=== PATIENT | female | born 1950 | race Caucasian/White ===

== ENCOUNTER → 2019-01-19 | Outpatient (CLI) | payer MEDICARE ==
[~2019-01-19] MED LIST: NALTREXONE PO; PREMC VG; THYR81.25 PO
== END | disposition home or self-care (01) ==
LOC: SHCH 15:12
PROVIDERS: ATTEND Internal Medicine Cardiovascular Disease
DX: I07.1 Rheumatic tricuspid insufficiency (principal); E03.9 Hypothyroidism, unspecified
CPT/HCPCS: 93306

== ENCOUNTER → 2019-01-22 | Outpatient (CLI) | payer MEDICARE ==
--- NOTE | 2019-01-22 21:31 | NUR ---
CURRENT MEDICATIONS LIST: NATURE THROID, T3 ONLY MED, VENLAFAXINE, LORAZEPAM, DHEA, BIOIDENTICAL HORMONE CREAMS, LDN (LOW DOSE NALTREXONE), PROGESTERONE, MAGNESIUM, POTASSIUM, SELENIUM, IODINE. Addendum: 01/22/19 at 2134 by MELITON MONK RTSLT Amended: Links added.
== END | disposition home or self-care (01) ==
LOC: SLP 20:25
PROVIDERS: ATTEND Internal Medicine Cardiovascular Disease
DX: G47.33 Obstructive sleep apnea (adult) (pediatric) (principal)
CPT/HCPCS: 95810

== ENCOUNTER → 2019-02-05 | Outpatient (CLI) | payer MEDICARE | END | disposition home or self-care (01) | LOC: SLP 14:26 | PROVIDERS: ATTEND Internal Medicine Cardiovascular Disease | DX: G47.33 Obstructive sleep apnea (adult) (pediatric) (principal); R09.02 Hypoxemia | CPT/HCPCS: 95811 ==

== ENCOUNTER 2023-09-01 06:19 | Day surgery (SDC) | payer MEDICARE ==
[2023-09-01] VITALS (11 sets, daily range): BP systolic 104–132; BP diastolic 58–87; PULSE 54–65; RESP 13–18
[~2023-09-01] VITALS: Ht 165.1 cm; Wt 55.3 kg
[~2023-09-01 06:19] MED LIST changes: +BORON PO; +FAMO40TA7 PO; +LORA0.5T83 PO; +MAGNESIUM PO; -NALTREXONE PO; +OMEGA 3 PO; +POTA99CA PO; -PREMC VG; +PROBIOTIC PO; +PROGESTERONE PO; +SELE200T27 PO; +VENL-191 PO; +VITA1CAP85 PO; +VITAMIN B1 PO; +VITAMIN D3 PO; +[UNRECOGNIZED DRUG - CODE] PO; +[UNRECOGNIZED DRUG - CODE] PO
[2023-09-01] MEDS ORDERED: LIDOCAINE PF 100MG/5ML (2%) SYRINGE 5ML ONE (08:21)
[2023-09-01] MEDS ORDERED: PROPOFOL 10 MG/ML 20ML VIAL IV ONE (08:21)
[2023-09-01] MEDS ORDERED: 0.9%NACL 1000ML 1,000 ML IV ONE (09:02)
== END 2023-09-01 09:55 | disposition home or self-care (01) ==
LOC: DAH 06:19 → ENDO 06:19
PROVIDERS: ATTEND Surgery
DX: K21.00 Gastro-esophageal reflux disease with esophagitis, without bleeding (principal); K22.70 Barrett's esophagus without dysplasia; K29.50 Unspecified chronic gastritis without bleeding; K44.9 Diaphragmatic hernia without obstruction or gangrene; K22.89 Other specified disease of esophagus; G47.30 Sleep apnea, unspecified; E03.9 Hypothyroidism, unspecified; Z80.0 Family history of malignant neoplasm of digestive organs; Z82.49 Family history of ischemic heart disease and other diseases of the circulatory system; Z82.3 Family history of stroke; Z83.3 Family history of diabetes mellitus; Z87.891 Personal history of nicotine dependence; Z72.89 Other problems related to lifestyle; Z90.710 Acquired absence of both cervix and uterus; Z98.890 Other specified postprocedural states; Z79.890 Hormone replacement therapy
CPT/HCPCS: 43239; J7030 ×2; J2001; J2704; A4620; A4215 ×2; A4223; A7002; A4222; A4221; A4663; A4606; J3490

== ENCOUNTER → 2023-10-19 | Outpatient (CLI) | payer MEDICARE | END | disposition home or self-care (01) | LOC: RAH 09:05 | PROVIDERS: ATTEND Surgery | DX: K44.9 Diaphragmatic hernia without obstruction or gangrene (principal); K21.9 Gastro-esophageal reflux disease without esophagitis | CPT/HCPCS: 74240 ==

== ENCOUNTER 2024-12-19 06:55 | Emergency (ER) | payer MEDICARE ==
[~2024-12-19] VITALS: Ht 165.1 cm; Wt 55.3 kg
[~2024-12-19 06:55] MED LIST changes: -VENL-191 PO; +VENL-83 PO
[2024-12-19 06:57] VITALS: BP 151/48; PULSE 74; RESP 18; TEMP 98
[2024-12-19] MEDS: HYDROcodone/APAP 5/325 1 TAB TABLET PO ONE (07:18)
[2024-12-19] MEDS: ketOROlac 15MG/ML VIAL (15MG/ML) IM ONE (07:18)
[2024-12-19] MEDS: diazePAM 2 MG TAB PO ONE (09:22)
--- NOTE | 2024-12-19 09:34 | ERN ---
ED Note History of Present Illness Stated Complaint: BACK PAIN Chief Complaint: Back Pain or Injury Time Seen by MD: 07:50 Dictation: 74-year-old female presents to the ED for evaluation of right lower back pain onset 3 days ago. Patient reports right hip pain and states the pain radiates down her right leg, patient denies any fall, trauma or any other associated symptoms at this time. As per patient she was moving some boxes a couple of days ago. Allergies: Coded Allergies: No Known Drug Allergies (Unverified Allergy, Unknown, 08/31/23) Uncoded Allergies: NKDA (Allergy, Unknown, 12/30/15) Home Meds Active Scripts Acetaminophen (Tylenol) 500 Mg Tab, 1 TAB PO BID PRN for pain or fever for 10 Days, #20 TAB 0 Refills Prov:SALBADOR ZENDEJAS MD 12/19/24 Reported Medications [Probiotic] No Conflict Check, 1 CAP PO DAILY 08/31/23 Psyllium Husk (with Sugar) (Konsyl Psyllium Fiber Powder) 3.4 Gram/12 Gram Po wder, 2 TSP PO BID, APPL 08/31/23 [[place] 3] No Conflict Check, 2100 MG PO DAILY 08/31/23 [Magnesium L-Theonate] No Conflict Check, 144 MG PO BID 08/31/23 Potassium Citrate (Potassium) 99 Mg Capsule, 99 MG PO DAILY, CAP 08/31/23 Vitamin B Complex (Vitamin B Complex) 1 Each Capsule, 1 EACH PO DAILY, CAP 08/31/23 [Vitamin B1] No Conflict Check, 200 MG PO DAILY 08/31/23 Selenomethionine (Selenium) 200 Mcg Tablet, 200 MCG PO QODAY, TAB 08/31/23 [[place]] No Conflict Check, 15 MG PO DAILY 08/31/23 Vitamin K2 (Mk-7) 90 Mcg Capsule, 90 MCG PO DAILY, CAP 08/31/23 [Vitamin D3] No Conflict Check, 12938 UNITS PO DAILY 08/31/23 Famotidine (Famotidine) 40 Mg Tablet, 40 MG PO HS, TAB 08/31/23 Lorazepam (Ativan) 0.5 Mg Tablet, 0.5 MG PO DAILY, TAB 08/31/23 Venlafaxine HCl (Venlafaxine HCl) 75 Mg Tablet, 75 MG PO DAILY, TAB 08/31/23 [Progesterone] No Conflict Check, 15 MG PO HS 08/31/23 Thyroid,Pork (Wp Thyroid) 81.25 Mg Tablet, 1 TAB PO DAILY, TAB 12/31/15 Past Medical History Past Medical History: Hypothyroid Surgical History: Hysterectomy, Tonsillectomy Review of System Dictation Constitutional: Negative for fever,chills, and weight loss Eyes: Negative for injury, pain,redness, and discharge ENT: Negative for injury,pain or swelling Cardiovascular: Negative for chest pain, palpitations, and edema Respiratory: Negative for shortness of breath, cough, and wheezing, Abdomen/GI: Negative for abdominal pain, nausea, vomiting, diarrhea, and constipation Back: Positive for back pain negative for injury : Negative for injury, bleeding and discharge MS/Extremity: Positive for right hip pain and right leg pain Skin: Negative for rash, and discoloration Neuro: Negative for headache, weakness, numbness, tingling, and seizure Psych: Negative for suicide ideation, homicidal ideation, and hallucinations Initial Vital Sign VS Vital Signs Date Time Temp Pulse Resp B/P (MAP) Pulse Ox O2 Delivery O2 Flow Rate FiO2 12/19/24 06:57 98.1 74 18 151/48 98 Room Air 0 Physical Exam Dictation General: awake, alert, NAD Head/Face: Normocephalic, atraumatic Eyes: PERRL, EOMI, vision at baseline ENT: oral cavity clear, TMs clear, no signs of infection Neck: Trachea midline, supple, no nuchal rigidity Cardiovascular: RRR, normal S1/S2, No MRGs, no JVD Respiratory: CTAB, no respiratory distress, No rales or wheezes Abdomen: Soft, non-tender, non-distended, normal bowel sounds, no guarding or rebound. Skin: Warm, dry, normal turgor, no rash MS/Extremity: Pulses equal, no cyanosis, neurovascular intact Neuro: COAx4, GCS 15, strength 5/5, CN 2-12 intact, normal cerebellar exam, normal gait, Psych: Normal behavior, mood, and affect normal ED Course ED Course Orders Procedure Category Date Status Time Ketorolac PHA 12/19/24 Complete Tromethamine 15mg/Ml 07:30 Hydrocodone/Apap PHA 12/19/24 Complete 5/325 ([place] 5/325mg) 07:30 Hip Unilat 2-3vw Right RAD 12/19/24 Resulted 08:02 Ct Abd/Pel Wo Con CT 12/19/24 Resulted Renal/Appy 08:56 Diazepam 2 Mg Tab PHA 12/19/24 Complete (Valium 2 Mg Tab) 09:00 Current Medications Medications (Trade) Dose Ordered Sig/Raghav Route PRN Reason Start Time Stop Time Status Last Admin Dose Admin Acetaminophen/ Hydrocodone Bitart (NORco 5/325MG) 1 tab ONCE ONCE PO 12/19/24 07:30 12/19/24 07:31 DC 12/19/24 07:18 Diazepam (VALium 2 mg Tab) 2 mg ONCE ONCE PO 12/19/24 09:00 12/19/24 09:01 DC 12/19/24 09:22 Ketorolac Tromethamine (toRADol) 15 mg ONCE ONCE IM 12/19/24 07:30 12/19/24 07:31 DC 12/19/24 07:18 Vital Signs Date Time Temp Pulse Resp B/P (MAP) Pulse Ox O2 Delivery O2 Flow Rate FiO2 12/19/24 06:57 98.1 74 18 151/48 98 Room Air 0 Medical Decision Making MDM MDM: Differential diagnosis: Hip pain, back pain, strain Rationale: Tests considered and ordered secondary to shared decision making include: Previous outside records reviewed: Old ER visits. Risk of complication and/or morbidity or mortality of patient management: None Medications-Per medication reconciliation Need for hospitalization: Patient does not meet criteria for hospitalization. Need for emergency major/minor surgery: No There are no social concerns with this patient. Prescription drug management Prescriptions will include symptomatic care Patient's prior external medical records from other ER visits were reviewed by me as indicated. Prior testing and results from previous visits were reviewed. Prior tests were taken into account with medical decision making and resource utilization, independent historian/historians were used to obtain complete medical history. I independently interpreted the test that were performed, results were reviewed by me and considered findings on radiology if ordered. Medical management and examination interpretation discussions were had by me with other qualified healthcare professionals as indicated for the patient's care. DX & DISP Disposition: Discharge Departure Impression: Primary Impression: Low back pain Condition: Stable Scripts Acetaminophen (Tylenol) 500 Mg Tab 1 TAB PO BID PRN for pain or fever for 10 Days, #20 TAB 0 Refills Prov: SALBADOR ZENDEJAS MD 12/19/24 Referrals: AISSATOU MARS (PCP) SALBADOR ZENDEJAS MD Dec 19, 2024 09:34
--- NOTE | 2024-12-19 10:27 | HMCIMG ---
Exam: AP pelvis and right hip 2 views Reason: Pain. FINDINGS: There are normal-appearing bones of the pelvis. SI joints appear unremarkable. Hip joint spaces are preserved. There are no fractures. Soft tissues appear unremarkable. Additional view of the right proximal femur also shows normal findings, no fracture and normal-appearing soft tissues. IMPRESSION: 1. Normal views of the pelvis and right hip.
--- NOTE | 2024-12-19 10:29 | HMCIMG ---
CT ABD/PEL WO CON RENAL/APPY REASON: right hip pain COMPARISON: None. FINDINGS: Lung bases are clear. There are no focal liver lesions. There are normal-appearing kidneys.. Spleen and pancreas appear unremarkable. The gallbladder appears normal as well. Bowel loops appear unremarkable. This includes normal appearance of the appendix There is no evidence of free fluid or intraperitoneal air. There are no focal fluid collections. Aorta and retroperitoneum appear normal as do pelvic soft tissue structures. The anterior abdominal wall is intact. Osseous structures appear unremarkable. This includes normal appearing bones of the pelvis as well as normal appearing proximal right femur. IMPRESSION: 1. Negative noncontrast CT abdomen and pelvis. CT was performed with one or more following dose reduction techniques: automated exposure control, adjustment of the mA and kv according to patient's size, or use of a iterative reconstruction technique.
[2024-12-19] MEDS ORDERED: ACET-66 PO (10:38)
== END 2024-12-19 10:46 | disposition home or self-care (01) ==
LOC: EDH 06:55
DX: M54.50 Low back pain, unspecified (principal); E03.9 Hypothyroidism, unspecified; Z79.890 Hormone replacement therapy; Z79.899 Other long term (current) drug therapy; Z90.710 Acquired absence of both cervix and uterus
CPT/HCPCS: 99285; 74176; 73502; 96372; J1885